=== PATIENT | female | born 2000 | race Caucasian/White ===

== ENCOUNTER 2020-06-27 01:05 | Emergency (ER) | payer MEDICAID ==
[~2020-06-27] VITALS: Ht 157.5 cm; Wt 104.3 kg
[2020-06-27 01:12] VITALS: BP 139/89
--- NOTE | 2020-06-27 01:12 | NUR ---
TO BED VIA WHEELCHAIR
--- NOTE | 2020-06-27 01:24 | NUR ---
PATIENT 19 Y.O. BIB SELF FOR C/O LEFT FOOT PAIN S/P "TRIPPED OVER A PIECE OF WOOD." X 5 HOURS AGO. PATIENT STATES "I THINK I TWISTED IT TOO." REPORTS PAIN 8/. A&O X4. CMS INTACT. SKIN IS PINK, WARM, AND DRY TO TOUCH. BILATERAL PULSES EQUAL AND STRONG. CAP REFILL <3 SECONDS. PER PATIENT SHE REPORTS TAKING ALEVE AT HOME, BUT UNABLE TO ACHIEVE PAIN RELIEF. BRUISING AND SWELLING NOTED TO OUTTER LEFT FOOT. PATIENT UNABLE TO AMBULATE AT THIS TIME. BED IS LOCKED AND IN LOWEST POSITION. MED HX: DENIES ALLERGIES: NKA
--- NOTE | 2020-06-27 01:31 | NUR ---
XRAY AT BEDSIDE.
--- NOTE | 2020-06-27 01:48 | NUR ---
ERMD AT BEDSIDE PERFORMING ASSESSMENT.
--- NOTE | 2020-06-27 01:59 | NUR ---
POSTERIOR SHORT LEG SPLINT PLACED ON PT L LEG. +CSM
[2020-06-27] MEDS ORDERED: IBUP-2213 PO (02:04)
--- NOTE | 2020-06-27 02:05 | NUR ---
PT GIVEN INSTRUCTION ON PROPER USE OF CRUTCHES. CRUTCHES FITTED TO PT HEIGHT AND ARM LENGTH. PT DEMONSTRATED SAFE USE FOR APPROXIMATELY 40 FEET, PT STATED SHE FELT COMFORTABLE WITH USE.
[2020-06-27 02:28] VITALS: BP 139/89
--- NOTE | 2020-06-27 02:28 | NUR ---
Patient discharged with v/s stable. Written and verbal after care instructions given and explained. Patient alert, oriented and verbalized understanding of instructions. Ambulatory with steady gait VIA CRUTCHES. All questions addressed prior to discharge. ID band removed. Patient advised to follow up with PMD. Rx of IBUPROFEN given. Patient educated on indication of medication including possible reaction and side effects. Opportunity to ask questions provided and answered.
== END 2020-06-27 02:28 | disposition home or self-care (01) ==
LOC: MED 01:05
DX: S92.352A Displaced fracture of fifth metatarsal bone, left foot, initial encounter for closed fracture (principal); X50.1XXA Overexertion from prolonged static or awkward postures, initial encounter; Y93.01 Activity, walking, marching and hiking; Y92.096 Garden or yard of other non-institutional residence as the place of occurrence of the external cause; Y99.8 Other external cause status
CPT/HCPCS: 29515; 73630; 99283